=== PATIENT | female | born 1995 ===

== ENCOUNTER 2017-03-26 03:08 | Emergency (ER) | payer SELFPAY ==
[2017-03-26 03:22] VITALS: PULSE 100; RESP 17; TEMP 98.1; O2SAT 98
[2017-03-26] MEDS ORDERED: ceFAZolin 1 GM in Sodium Chloride 0.9% 100 ML IVPB ONE (04:09)
--- NOTE | 2017-03-26 04:21 | ED PDOC ---
HPI: Abdomen Time Seen by Provider: 03/26/17 03:31 Chief Complaint (Nursing): Abdominal Pain Chief Complaint (Provider): nausea, vomiting, diarrhea History Per: Patient History/Exam Limitations: no limitations Onset/Duration Of Symptoms: Waxing/Waning (for 2 weeks) Outside of [place] travel?: No Pain Scale Rating Of: 5 Location Of Pain/Discomfort: RLQ, LLQ Quality Of Discomfort: Cramping Associated Symptoms: Nausea, Vomiting, Diarrhea Exacerbating Factors: None Alleviating Factors: None Additional Complaint(s): 22 yo F w PMHx of PCOS and mild intermittent asthma present to ER for abdominal pain, nausea, and vomiting for previous 2 weeks. All 3 symptoms have occurred intermittently during previous 2 weeks, although they've happened much more frequently at night hours after the patient gets out of work at [employer], where she also eats everyday. She denies any employees or customers complaining of similar problems, as well as no known friends or family with the same complaints. She also has a diffuse maculopapular rash throughout her body with varying degrees of intensity that has been ongoing for 2 months. She does see a comfort advisor, however, she has not yet had any resolution. Additionally, she c/ o of b/l breast pain that has been ongoing for 2 weeks that is sharp, intermittent, and migrates throughout each breast. She had b/l breast augmentation in July. She denies fevers/chills, diarrhea, constipation, chest pain, palpitations, SOB, dyspnea, cough, hematuria, dysuria, or other myalgias. PMD: Dr Renner Breast Surgeon: Dr Lyon Abnormal Vaginal Bleeding: No Last Menstral Period: February 04 : 0 Para: 0 Past Medical History Vital Signs: Last Vital Signs Temp 98.1 F 03/26/17 03:19 Pulse 100 H 03/26/17 03:19 Resp 17 03/26/17 03:19 BP Pulse Ox 98 03/26/17 03:19 - Medical History PMH: Asthma - Allergies Allergies/Adverse Reactions: Allergies Allergy/AdvReac Type Severity Reaction Status Date / Time No Known Allergies Allergy Verified 03/26/17 03:22 Review of Systems ROS Statement: Except As Marked, All Systems Reviewed And Found Negative (see HPI) Physical Exam - Reviewed Nursing Documentation Reviewed: Yes Vital Signs Reviewed: Yes - Physical Exam Appears: Positive for: Well, Non-toxic, No Acute Distress Head Exam: Positive for: ATRAUMATIC, NORMOCEPHALIC Skin: Positive for: Normal Color, Warm, Dry, Rash (diffuse maculopapular w varying intensity) Eye Exam: Positive for: Normal appearance, EOMI, PERRL Neck: Positive for: Normal, Painless ROM, Supple Cardiovascular/Chest: Positive for: Regular Rate, Rhythm, Other (b/l chapped/ cracking areolas that is worse on Right, mild erythema b/l on inferior & lateral aspects that are very TTP and [id number]). Negative for: Edema Respiratory: Positive for: Normal Breath Sounds. Negative for: Stridor, Wheezing Gastrointestinal/Abdominal: Positive for: Bowel Sounds, Soft, Tenderness ( Epigastric, LUQ, LLQ). Negative for: Distended, Guarding, Rebound Extremity: Positive for: Normal ROM. Negative for: Pedal Edema, Calf Tenderness Neurologic/Psych: Positive for: Alert, camera repairman II-XII, Oriented - ECG O2 Sat by Pulse Oximetry: 98 - Progress ED Course And Treament: 22 yo F w PMHx of PCOS and mild intermittent asthma present to ER for abdominal pain, nausea, and vomiting for previous 2 weeks -CBC -CMP -Upreg -UA -Ancef 1g x1
[2017-03-26 04:31] LABS: HEMATOCRIT 41.9 % (34.0-47.0); MEAN CORPUSCULAR HEMOGLOBIN 27.3 pg (27.0-31.0); MEAN CORPUSCULAR HGB CONC 33.8 g/dL (33.0-37.0); RED CELL DISTRIBUTION WIDTH 14.3 % (11.5-14.5); WHITE BLOOD COUNT 8.8 K/uL (4.8-10.8)
[2017-03-26 04:41] LABS: ALB/GLOB RATIO 1.2 (1.0-2.1); ALKALINE PHOSPHATASE 67 U/L (38-126); ALT/SGPT 36 U/L (9-52); AST/SGOT 22 U/L (14-36); BILIRUBIN,TOTAL 0.2 mg/dl (0.2-1.3); BLOOD UREA NITROGEN 10 mg/dl (7-17); CALCIUM 9.7 mg/dL (8.4-10.2); CARBON DIOXIDE 22 mmol/L (22-30); CHLORIDE 105 mmol/L (98-107); GFR AFRICAN-AMERICAN > 60; GLUCOSE,RANDOM 84 mg/dL (65-105); SODIUM 138 mmol/l (132-148); TOTAL PROTEIN 7.9 G/DL (6.3-8.2)
[2017-03-26 04:57] LABS: RBC URINE 3 /hpf (0-3); URINE BILIRUBIN NEGATIVE (NEGATIVE); URINE BLOOD NEGATIVE (NEGATIVE); URINE COLOR YELLOW (YELLOW); URINE GLUCOSE (UA) NEG (Normal); URINE KETONE NEGATIVE (NEGATIVE); URINE LEUKOCYTE ESTERASE NEG Leu/uL (Negative); URINE PROTEIN NEGATIVE (NEGATIVE); URINE UROBILINOGEN 0.2-1.0 mg/dL (0.2-1.0); WBC URINE 1 /hpf (0-5)
== END 2017-03-26 06:21 | disposition home or self-care (01) ==
LOC: H.ER 03:08
DX: R10.13 Epigastric pain (principal); R11.2 Nausea with vomiting, unspecified; R19.7 Diarrhea, unspecified; J45.909 Unspecified asthma, uncomplicated
CPT/HCPCS: 80053; 81003; 81025; 84702; 85027; 96365; 99284; J0690